=== PATIENT | male | born 1955 | race Asian ===

== ENCOUNTER 2017-03-20 14:27 | Emergency (ER) | payer BC ==
[~2017-03-20] VITALS: Ht 165.1 cm; Wt 78.9 kg
[2017-03-20 14:43] VITALS: BP_SYST 158
[2017-03-20] MEDS ORDERED: LIDOCAINE/EPI 1% 1:100000 20 ML VIAL IJ ONE (16:15)
[2017-03-20] MEDS ORDERED: DIPH-TET-PERTUS Vaccine 0.5 ML VIAL (ADACEL) IM ONE (16:45)
[2017-03-20 16:50] VITALS: BP_SYST 158
== END 2017-03-20 16:50 | disposition home or self-care (01) ==
LOC: SED 14:27
DX: S61.412A Laceration without foreign body of left hand, initial encounter (principal); W26.0XXA Contact with knife, initial encounter; Y93.89 Activity, other specified; Y92.89 Other specified places as the place of occurrence of the external cause; Y99.8 Other external cause status
CPT/HCPCS: 90715; 99283